=== PATIENT | male | born 1995 | race Caucasian/White ===

== ENCOUNTER 2018-05-04 14:52 | Emergency (ER) | payer OTHER ==
[2018-05-04 14:57] VITALS: BP 137/74
--- NOTE | 2018-05-04 16:43 | EDPHY ---
H & P Smoking Status: Never smoked Time Seen by Provider: 05/04/18 16:35 HPI/ROS: CHIEF COMPLAINT: Bridge of nose laceration HISTORY OF PRESENT ILLNESS: 22-year-old male up-to-date tetanus sustained accidental laceration of the bridge of his nose using a drill that caught and kicked back impacting the bridge of his nose. No loss of consciousness. No diplopia. No epistaxis. PHYSICAL EXAM (Prior to examination, patient consented to physical exam, hands were washed and my usual and customary physical exam procedures followed) 1) GENERAL: Well-developed, well-nourished, alert and oriented. Appears to be in no acute distress. 2) HEAD: Normocephalic 3) HEENT: sclera anicteric . Bridge of nose 1 cm transverse well-demarcated linear laceration. No septal hematoma. No widening of intercanthal space. No deformity of the nose. (Megan Marvin) Constitutional: Initial Vital Signs Temperature (C) 36.6 C 05/04/18 14:55 Heart Rate 71 05/04/18 14:55 Respiratory Rate 17 05/04/18 14:55 Blood Pressure 137/74 H 05/04/18 14:55 O2 Sat (%) 98 05/04/18 14:55 O2 Delivery Mode Room Air Allergies/Adverse Reactions: No Known Allergies Allergy (Verified 05/04/18 14:54) Home Medications: Medication Instructions Recorded Lexapro 05/04/18 MDM/Departure - MDM Procedures: Procedure: Laceration repair with tissue adhesive Verbal consent was obtained from the patient. The 1 cm laceration on the bridge of nose was anesthetized with 1% plain lidocaine. The wound was scrubbed and explored to its base with a gloved finger. No foreign body seen, no foreign bodies palpated. There were no deep structures involved. The wound was repaired with tissue adhesive. The procedure was performed by myself. Patient has been informed that scarring will occur, although efforts have been made to minimize this. (Megan Marvin) ED Course/Re-evaluation: I did not see this patient while he was in the emergency department. However his care was discussed with the PA while the patient was in the department. I agree with treatment plan management (Abelardo Almanza) - Depart Disposition: Home, Routine, Self-Care Clinical Impression: Laceration of nose Qualifiers: Encounter type: initial encounter Qualified Code(s): S01.21XA - Laceration without foreign body of nose, initial encounter Condition: Good Instructions: Laceration (ED), Skin Adhesive Care (ED) Additional Instructions: Return to the ER if you develop bleeding, headaches, nausea, vomiting or any other symptoms that concern you Referrals: Deng Huntley [Primary Care Provider] - 5-7 days, call for appt.
[2018-05-04] MEDS ORDERED: SKIN ADHESIVE (DERMABOND) 1 EACH TP ONE (16:49)
== END 2018-05-04 17:10 | disposition home or self-care (01) ==
PROC: 09QKXZZ Repair Nasal Mucosa and Soft Tissue, External Approach (ICD-10-PCS; principal; 2018-05-04)
DX: S01.21XA Laceration without foreign body of nose, initial encounter (principal); W31.2XXA Contact with powered woodworking and forming machines, initial encounter; Y92.9 Unspecified place or not applicable